=== PATIENT | female | born 1950 | race American Indian/Alaskan Native ===

== ENCOUNTER 2017-01-12 13:41 | Outpatient (CLI) | payer MEDICARE | END 2017-01-12 13:42 | disposition home or self-care (01) | LOC: MAMMO 13:41 | PROVIDERS: ATTEND Obstetrics & Gynecology | DX: N63 Unspecified lump in breast (principal); I10 Essential (primary) hypertension | CPT/HCPCS: 76642; G0206 ==

== ENCOUNTER 2017-01-19 04:09 | Emergency (ER) | payer MEDICARE ==
[2017-01-19 04:30] VITALS: BP 136/71
[2017-01-19] MEDS ORDERED: MORPHINE IM ONE (05:12)
--- NOTE | 2017-01-19 05:30 | Emergency Department Report ---
HPI - General Chief Complaint: Extremity Injury, Lower Time Seen by Provider: 01/19/17 05:22 - HPI HPI: Patient is a 66-year-old female with a history of fibromyalgia who presents to ED complaining of fibromyalgia worsening pain of the right hip area. Patient states she is taking her prescribed Flexeril and hydrocodone with no relief. Patient states pain is on her right lumbar region and radiates down her right leg. She states she sees Dr. Ramachandran as a primary care.She denies any trauma or fall and states she just has worsening pain or from fibromyalgia She denies fever assess chills/nausea/vomiting/abdominal pain/calf pain/ shortness of breath/constipation/any other problems ED Past Medical Hx - Past Medical History Previous Medical History?: Yes Hx Hypertension: Yes Hx Arthritis: Yes Additional medical history: high cholesterol, fibromyalgia - Surgical History Past Surgical History?: Yes Hx Open Heart Surgery: Yes (valve replacement, CABG) Hx Cholecystectomy: Yes Hx Appendectomy: Yes Additional Surgical History: tubal ligation - Social History Smoking Status: Never Smoker Substance Use Type: Alcohol, Prescribed - Medications Home Medications: Home Medications Medication Instructions Recorded Confirmed Last Taken Type Aspirin [Baby Aspirin] 81 mg PO QDAY 12/04/13 11/09/14 11/09/14 History Colesevelam [Welchol] 625 mg PO BID 12/04/13 11/09/14 11/09/14 History Cyclobenzaprine [Flexeril] 10 mg PO TID PRN 12/04/13 11/09/14 12/04/13 11:00 History HYDROcodone/APAP 7.5-325 [[place] 1 each PO Q6HR PRN 12/04/13 11/09/14 12/04/13 11 :00 History 7.5/325 mg] Losartan [Cozaar] 25 mg PO QDAY 12/04/13 11/09/14 11/09/14 History Metoprolol [Lopressor] 50 mg PO BID 12/04/13 11/09/14 11/09/14 History [place]-3 Acid Ethyl Esters [Lovaza] 2 gm PO BID 12/04/13 11/09/14 11/09/14 History ALBUTEROL Inhaler [ProAir HFA 2 puff IH QID PRN #2 inhalation 12/05/13 11/09/14 Unknown Rx Inhaler] Azithromycin [Zithromax Z-PRATIK] 250 mg PO DAILY #6 tab 07/28/15 Unknown Rx HYDROcodone/APAP 10-325 [[place] 1 each PO Q6HR PRN #16 tablet 07/28/15 Unknown Rx 10/325] Promethazine Dm [Phenergan Dm 5 ml PO Q6H PRN #120 ml 07/28/15 Unknown Rx 6.25/15 mg 5 ml] oxyCODONE /ACETAMINOPHEN [Percocet 1 tab PO Q6HR PRN #10 tablet 01/19/17 Unknown Rx 5/325] ED Review of Systems ROS: Stated complaint: RT HIP PAIN Other details as noted in HPI Constitutional: denies: chills, fever Eyes: denies: eye pain, eye discharge, vision change ENT: denies: ear pain, throat pain Respiratory: denies: cough, shortness of breath, wheezing Cardiovascular: denies: chest pain, palpitations Endocrine: no symptoms reported Gastrointestinal: denies: abdominal pain, nausea, vomiting, diarrhea, hematemesis Genitourinary: denies: urgency, dysuria, frequency, hematuria, discharge Musculoskeletal: denies: back pain, joint swelling, arthralgia Skin: denies: rash, lesions Neurological: denies: headache, weakness, paresthesias Psychiatric: denies: anxiety, depression Hematological/Lymphatic: denies: easy bleeding, easy bruising Physical Exam - Physical Exam Vital Signs: Vital Signs 01/19/17 04:26 Temperature 98.6 F Pulse Rate 64 Respiratory 18 Rate Blood Pressure 136/71 Blood Pressure 136/71 [Left] O2 Sat by Pulse 100 Oximetry Physical Exam: GENERAL: Alert and oriented x3, no apparent distress, Normal Gait, atraumatic. HEAD: Head is normocephalic and a-traumatic. EYES: Extra ocular muscles are intact. Pupils are equal, round, and reactive to light and accommodation. LUNGS: Symetrical with respiration, No wheezing, no rales or crackles, CTAB. HEART: S1, S2 present, regular rate and rhythm without murmur, no rubs, no gallops. Non tender to palpation EXTREMITIES/MUSCULOSKELETAL: No cyanosis, clubbing, rash, lesions or edema. Full ROM bilaterally. UE/LE Pulses 2+ bilaterally. LE and UE 5+ strength bilaterally, straight leg raise positive right-sided. Right lumbar region tender to palpation. Nontender to palpation, nonedematous, Homans sign negative on the right NEUROLOGIC: The patient is cooperative with no focal neurologic deficits. Cranial nerves II through XII are grossly intact. Normal speech. Normal sensation in bilateral lower extremities, No loss of sensation, SKIN: Warm and dry, No lesions, No ulceration or induration present. ED Course Vital Signs 01/19/17 04:26 Temperature 98.6 F Pulse Rate 64 Respiratory 18 Rate Blood Pressure 136/71 Blood Pressure 136/71 [Left] O2 Sat by Pulse 100 Oximetry ED Medical Decision Making - Medical Decision Making 66-year-old female presents with fibromyalgia exacerbation. ED course: Patient received 6 mg of morphine in the ED. Discussed patient to follow up with her physician Dr. Ramachandran Patient is in no acute distress. Critical care attestation.: If time is entered above; I have spent that time in minutes in the direct care of this critically ill patient, excluding procedure time. ED Disposition Clinical Impression: Fibromyalgia, Lumbar radicular pain Disposition: TO HOME OR SELFCARE Is pt being admited?: No Does the pt Need Aspirin: No Condition: Stable Instructions: Trigger Point Pain (ED), Fibromyalgia (ED) Prescriptions: oxyCODONE /ACETAMINOPHEN [Percocet 5/325] 1 tab PO Q6HR PRN #10 tablet PRN Reason: Pain Referrals: PRIMARY CARE, [Primary Care Provider] - 3-5 Days [facility] [Outside] - 3-5 Days [facility] [Outside] - 3-5 Days Forms: Accompanied Note Time of Disposition: 05:31
== END 2017-01-19 05:48 | disposition home or self-care (01) ==
LOC: ED 04:09
DX: M79.7 Fibromyalgia (principal); I10 Essential (primary) hypertension; M19.90 Unspecified osteoarthritis, unspecified site; E78.00 Pure hypercholesterolemia, unspecified; Z95.1 Presence of aortocoronary bypass graft; Z90.49 Acquired absence of other specified parts of digestive tract; Z98.51 Tubal ligation status; Z79.82 Long term (current) use of aspirin
CPT/HCPCS: 96372; 99282; J2270

== ENCOUNTER 2017-05-22 00:22 | Emergency (ER) | payer MEDICARE ==
[2017-05-22 00:55] VITALS: BP 128/80
[2017-05-22 02:06] LABS: Basophils % (Auto) 1.1 % (0.0-1.8); Eosinophils % (Auto) 0.6 % (0.0-4.3); Hematocrit 41.9 % (30.3-42.9); Hemoglobin 13.8 gm/dl (10.1-14.3); Mean Corpuscular HGB Conc 33 % (30-34); Mean Corpuscular Hemoglobin 28 pg (28-32); Mean Corpuscular Volume 85 fl (79-97); Platelet Count 200 K/mm3 (140-440); Red Blood Count 4.93 M/mm3 (3.65-5.03); Red Cell Distribution Width 16.4 % (13.2-15.2); White Blood Count 7.7 K/mm3 (4.5-11.0)
[2017-05-22 02:12] LABS: Anion Gap 22 mmol/L; BUN/Creatinine Ratio 18; Blood Urea Nitrogen 16 mg/dL (7-17); Calcium 10.1 mg/dL (8.4-10.2); Carbon Dioxide 22 mmol/L (22-30); Chloride 104.9 mmol/L (98-107); Glucose 99 mg/dL (65-100); Potassium 3.9 mmol/L (3.6-5.0); Sodium 145 mmol/L (137-145)
== END 2017-05-22 05:22 | disposition left against medical advice (07) ==
LOC: ED 00:22
DX: R07.9 Chest pain, unspecified (principal); Z53.21 Procedure and treatment not carried out due to patient leaving prior to being seen by health care provider
CPT/HCPCS: 36415; 80048; 84484; 85025; 93005; 93010

== ENCOUNTER 2018-01-18 18:16 | Emergency (ER) | payer MEDICARE ==
[2018-01-18 18:42] VITALS: BP 148/61
[2018-01-18] MEDS ORDERED: MORPHINE IM ONE (20:10)
--- NOTE | 2018-01-18 20:14 | Emergency Department Report ---
ED General Adult HPI - General Chief complaint: Pain General Stated complaint: TINGLING IN FEET AND HANDS. SEVERE PAIN ON RT SIDE Time Seen by Provider: 01/18/18 20:06 Source: patient Mode of arrival: Ambulatory Limitations: Physical Limitation - History of Present Illness Initial comments: Mrs. Garcia is 67 yo female with hx of fibromyalgia since 2000. She has had tingling in her hand and feet for 2 weeks. Pain typical of fibromyalgia. She normally takes Flexeril and [place]. However these medications have not helped this exacerbation fibromyalgia. . She unclear her triggers. Denies any fever or trauma. PCP Dr. Fink - Related Data Home Medications Medication Instructions Recorded Confirmed Last Taken Aspirin [Baby Aspirin] 81 mg PO QDAY 12/04/13 11/09/14 11/09/14 Colesevelam [Welchol] 625 mg PO BID 12/04/13 11/09/14 11/09/14 Cyclobenzaprine [Flexeril] 10 mg PO TID PRN 12/04/13 11/09/14 12/04/13 11:00 HYDROcodone/APAP 7.5-325 [[place] 1 each PO Q6HR PRN 12/04/13 11/09/14 12/04/13 11 :00 7.5/325 mg] Losartan [Cozaar] 25 mg PO QDAY 12/04/13 11/09/14 11/09/14 Metoprolol [Lopressor] 50 mg PO BID 12/04/13 11/09/14 11/09/14 [place]-3 Acid Ethyl Esters [Lovaza] 2 gm PO BID 12/04/13 11/09/14 11/09/14 Previous Rx's Medication Instructions Recorded Last Taken Type ALBUTEROL Inhaler [ProAir HFA 2 puff IH QID PRN #2 inhalation 12/05/13 Unknown Rx Inhaler] Azithromycin [Zithromax Z-PRATIK] 250 mg PO DAILY #6 tab 07/28/15 Unknown Rx HYDROcodone/APAP 10-325 [[place] 1 each PO Q6HR PRN #16 tablet 07/28/15 Unknown Rx 10/325] Promethazine Dm [Phenergan Dm 5 ml PO Q6H PRN #120 ml 07/28/15 Unknown Rx 6.25/15 mg 5 ml] oxyCODONE /ACETAMINOPHEN [Percocet 1 tab PO Q6HR PRN #10 tablet 01/19/17 Unknown Rx 5/325] oxyCODONE /ACETAMINOPHEN [Percocet 1 tab PO Q6HR PRN #5 tablet 01/18/18 Unknown Rx 5/325] Allergies Allergy/AdvReac Type Severity Reaction Status Date / Time No Known Allergies Allergy Unverified 12/04/13 20:40 ED Review of Systems ROS: Stated complaint: TINGLING IN FEET AND HANDS. SEVERE PAIN ON RT SIDE Other details as noted in HPI Comment: All other systems reviewed and negative Constitutional: denies: fever, malaise Respiratory: denies: cough Cardiovascular: denies: chest pain ED Past Medical Hx - Past Medical History Previous Medical History?: Yes Hx Hypertension: Yes Hx Arthritis: Yes Additional medical history: high cholesterol, fibromyalgia - Surgical History Past Surgical History?: Yes Hx Open Heart Surgery: Yes (valve replacement, CABG) Hx Cholecystectomy: Yes Hx Appendectomy: Yes Additional Surgical History: tubal ligation - Social History Smoking Status: Former Smoker Substance Use Type: Alcohol - Medications Home Medications: Home Medications Medication Instructions Recorded Confirmed Last Taken Type Aspirin [Baby Aspirin] 81 mg PO QDAY 12/04/13 11/09/14 11/09/14 History Colesevelam [Welchol] 625 mg PO BID 12/04/13 11/09/14 11/09/14 History Cyclobenzaprine [Flexeril] 10 mg PO TID PRN 12/04/13 11/09/14 12/04/13 11:00 History HYDROcodone/APAP 7.5-325 [[place] 1 each PO Q6HR PRN 12/04/13 11/09/14 12/04/13 11 :00 History 7.5/325 mg] Losartan [Cozaar] 25 mg PO QDAY 12/04/13 11/09/14 11/09/14 History Metoprolol [Lopressor] 50 mg PO BID 12/04/13 11/09/14 11/09/14 History [place]-3 Acid Ethyl Esters [Lovaza] 2 gm PO BID 12/04/13 11/09/14 11/09/14 History ALBUTEROL Inhaler [ProAir HFA 2 puff IH QID PRN #2 inhalation 12/05/13 11/09/14 Unknown Rx Inhaler] Azithromycin [Zithromax Z-PRATIK] 250 mg PO DAILY #6 tab 01/04/16 Unknown Rx HYDROcodone/APAP 10-325 [[place] 1 each PO Q6HR PRN #16 tablet 07/28/15 Unknown Rx 10/325] Promethazine Dm [Phenergan Dm 5 ml PO Q6H PRN #120 ml 07/28/15 Unknown Rx 6.25/15 mg 5 ml] oxyCODONE /ACETAMINOPHEN [Percocet 1 tab PO Q6HR PRN #10 tablet 01/19/17 Unknown Rx 5/325] oxyCODONE /ACETAMINOPHEN [Percocet 1 tab PO Q6HR PRN #5 tablet 01/18/18 Unknown Rx 5/325] ED Physical Exam - General Limitations: Physical Limitation General appearance: alert, in no apparent distress - Head Head exam: Present: atraumatic, normocephalic - Eye Eye exam: Present: normal appearance - ENT ENT exam: Present: mucous membranes moist - Neck Neck exam: Present: normal inspection - Respiratory Respiratory exam: Present: normal lung sounds bilaterally. Absent: respiratory distress, wheezes, rales, rhonchi - Cardiovascular Cardiovascular Exam: Present: regular rate, normal rhythm, normal heart sounds. Absent: systolic murmur, diastolic murmur, rubs, gallop - GI/Abdominal GI/Abdominal exam: Present: soft, normal bowel sounds. Absent: distended, tenderness, guarding, rebound - Extremities Exam Extremities exam: Present: normal inspection - Back Exam Back exam: Present: normal inspection - Neurological Exam Neurological exam: Present: alert, oriented X3 - Psychiatric Psychiatric exam: Present: normal affect, normal mood - Skin Skin exam: Present: warm, dry, intact, normal color. Absent: rash ED Course Vital Signs 01/18/18 18:38 Temperature 98.1 F Pulse Rate 63 Respiratory 20 Rate Blood Pressure 148/61 O2 Sat by Pulse 97 Oximetry ED Medical Decision Making - Medical Decision Making Ms. Garcia presents for exacerbation or worsening of fibromyalgia symptoms. She received IM morphine in ED prescription for 5 tablets of Percocet. Critical care attestation.: If time is entered above; I have spent that time in minutes in the direct care of this critically ill patient, excluding procedure time. ED Disposition Clinical Impression: Fibromyalgia Disposition: PAT REG,NO TRIAGE Is pt being admited?: No Does the pt Need Aspirin: No Condition: Stable Instructions: Fibromyalgia (ED) Prescriptions: oxyCODONE /ACETAMINOPHEN [Percocet 5/325] 1 tab PO Q6HR PRN #5 tablet PRN Reason: Pain Referrals: PRIMARY CARE, [Primary Care Provider] - 3-5 Days Time of Disposition: 20:14
== END 2018-01-18 20:35 | disposition left against medical advice (07) ==
LOC: ED 18:16
DX: M79.7 Fibromyalgia (principal); I10 Essential (primary) hypertension; M19.90 Unspecified osteoarthritis, unspecified site; E78.00 Pure hypercholesterolemia, unspecified; Z90.49 Acquired absence of other specified parts of digestive tract; Z98.51 Tubal ligation status; Z87.891 Personal history of nicotine dependence; Z79.82 Long term (current) use of aspirin
CPT/HCPCS: 96372; 99282; J2270

== ENCOUNTER 2018-08-15 16:35 | Emergency (ER) | payer MEDICARE ==
--- NOTE | 2018-08-15 17:20 | Emergency Department Report ---
ED Dysuria HPI - HPI Chief Complaint: Abdominal Pain Stated Complaint: STOMACH PAIN/DISCHARGE Time Seen by Provider: 08/15/18 17:17 Duration: 3 Days Location of Discomfort: Suprapubic Severity: Mild Symptoms: Dysuria: Yes, Frequency: No, Suprapubic Pain: Yes, Flank Pain: No, Fever: No, Hematuria: No, Abdominal Pain: No, Previous UTI's: Yes Other History: 68 YO AA FEMALE WITH SUPRAPUBIC PAIN AND DYSURIA ED Review of Systems ROS: Stated complaint: STOMACH PAIN/DISCHARGE Other details as noted in HPI Comment: All other systems reviewed and negative Constitutional: denies: chills Eyes: denies: eye pain ENT: denies: ear pain Respiratory: denies: orthopnea Cardiovascular: denies: palpitations Endocrine: denies: excessive sweating Gastrointestinal: as per HPI, abdominal pain. denies: nausea, vomiting, diarrhea, constipation, hematemesis, melena Genitourinary: as per HPI, dysuria. denies: urgency, frequency, hematuria, discharge Musculoskeletal: as per HPI, back pain Skin: denies: lesions Neurological: denies: as per HPI Psychiatric: denies: anxiety Hematological/Lymphatic: denies: easy bleeding ED Past Medical Hx - Past Medical History Previous Medical History?: Yes Hx Hypertension: Yes Hx Arthritis: Yes Additional medical history: high cholesterol, fibromyalgia - Surgical History Past Surgical History?: Yes Hx Open Heart Surgery: Yes (valve replacement, CABG) Hx Cholecystectomy: Yes Hx Appendectomy: Yes Additional Surgical History: tubal ligation - Social History Smoking Status: Former Smoker Substance Use Type: Alcohol - Medications Home Medications: Home Medications Medication Instructions Recorded Confirmed Last Taken Type Aspirin [Baby Aspirin] 81 mg PO QDAY 12/04/13 11/09/14 11/09/14 History Colesevelam [Welchol] 625 mg PO BID 12/04/13 11/09/14 11/09/14 History Losartan [Cozaar] 25 mg PO QDAY 12/04/13 11/09/14 11/09/14 History Metoprolol [Lopressor] 50 mg PO BID 12/04/13 11/09/14 11/09/14 History [place]-3 Acid Ethyl Esters [Lovaza] 2 gm PO BID 12/04/13 11/09/14 11/09/14 History ALBUTEROL Inhaler (OR & NICU) 2 puff IH QID PRN #2 inhalation 12/05/13 11/09/14 Unknown Rx [ProAir HFA Inhaler] Sulfamethoxazole/Trimethoprim 1 each PO BID #6 tablet 08/15/18 Unknown Rx [Bactrim DS TAB] Dysuria Exam - Exam General: Vital signs noted. No distress. Alert and acting appropriately. Exam: Yes Moist Mucous Membranes, No CVA Tenderness, No Abdominal Tenderness, No Rigidity or Guarding ED Course Vital Signs 08/15/18 16:38 Temperature 97.3 F L Pulse Rate 62 Respiratory 18 Rate Blood Pressure 146/63 O2 Sat by Pulse 100 Oximetry ED Medical Decision Making - Lab Data Result diagrams: 08/15/18 17:23 08/15/18 17:23 - Medical Decision Making UA NOTED NO CVA TENDERNESS NO FEVER VSS NONTOXIC MEDICATED DISCUSSED FOLLOW UP WITH PCP WITH PT Labs 08/15/18 08/15/18 08/15/18 17:16 17:23 17:23 WBC 8.8 RBC 4.37 Hgb 11.3 Hct 36.1 MCV 83 MCH 26 L MCHC 31 RDW 15.3 H Plt Count 222 Sodium 140 Potassium 3.9 Chloride 103.4 Carbon Dioxide 24 Anion Gap 17 BUN 17 Creatinine 1.0 Estimated GFR > 60 BUN/Creatinine Ratio 17 Glucose 113 H Calcium 9.0 Total Bilirubin 0.20 AST 17 ALT 9 Alkaline Phosphatase 70 Total Protein 7.4 Albumin 3.9 Albumin/Globulin Ratio 1.1 Urine Color Yellow Urine Turbidity Slightly-cloudy Urine pH 5.0 Ur Specific [place] 1.020 Urine Protein <15 mg/dl Urine Glucose (UA) Neg Urine Ketones Neg Urine Blood Neg Urine Nitrite Neg Urine Bilirubin Neg Urine Urobilinogen < 2.0 Ur Leukocyte Esterase Lg Urine WBC (Auto) 88.0 H Urine RBC (Auto) 30.0 U Epithel Cells (Auto) 2.0 Urine Bacteria (Auto) 1+ Urine Mucus Few - Differential Diagnosis UTI V PYLO Critical care attestation.: If time is entered above; I have spent that time in minutes in the direct care of this critically ill patient, excluding procedure time. ED Disposition Clinical Impression: UTI (urinary tract infection) Disposition: TO HOME OR SELFCARE Is pt being admited?: No Does the pt Need Aspirin: No Condition: Stable Instructions: Urinary Tract Infection in Women (ED) Additional Instructions: DRINK 2 G OF WATER PER DAY MEDS ORDERED TODAY TAKE UNTIL GONE YOU NEED TO FOLLOW UP WITH PCP TO BE SURE THIS INFECTION GOES AWAY MOTRIN OR TYLENOL FOR MILD PAIN OVER THE COUNTER PYRIDIUM CAN BE USED FOR PAIN WELL CRANBERRY JUICE MAY HELP LIMIT SUGAR INTAKE Prescriptions: Sulfamethoxazole/Trimethoprim [Bactrim DS TAB] 1 each PO BID #6 tablet Referrals: MARCOS URIBE MD [Primary Care Provider] - 3-5 Days Time of Disposition: 17:39
[2018-08-15 17:34] LABS: Hematocrit 36.1 % (30.3-42.9); Hemoglobin 11.3 gm/dl (10.1-14.3); Mean Corpuscular HGB Conc 31 % (30-34); Mean Corpuscular Volume 83 fl (79-97); Platelet Count 222 K/mm3 (140-440); Red Blood Count 4.37 M/mm3 (3.65-5.03); Red Cell Distribution Width 15.3 % (13.2-15.2)
[2018-08-15 17:35] LABS: Bacteria,Urine 1+ /HPF (Negative); Bilirubin,Urine NEG (Negative); Blood,Urine NEG (Negative); Color,Urine Yellow (Yellow); Mucus,Urine FEW /HPF; Protein,Urine <15 mg/dL mg/dL (Negative); Urobilinogen,Urine < 2.0 mg/dL (<2.0)
[2018-08-15] MEDS ORDERED: ULTRAM PO ONE (17:38)
[2018-08-15] MEDS ORDERED: BACTRIM DS PO ONE (17:38)
[2018-08-15] MEDS ORDERED: PYRIDIUM PO ONE (17:39)
[2018-08-15 17:51] LABS: Alanine Aminotransferase 9 units/L (7-56); Albumin 3.9 g/dL (3.9-5); BUN/Creatinine Ratio 17; Blood Urea Nitrogen 17 mg/dL (7-17); Hemolysis Index 5
[2018-08-15 18:03] VITALS: BP 151/66
== END 2018-08-15 18:01 | disposition home or self-care (01) ==
LOC: ED 16:35
DX: N39.0 Urinary tract infection, site not specified (principal); I10 Essential (primary) hypertension; M19.90 Unspecified osteoarthritis, unspecified site; E78.00 Pure hypercholesterolemia, unspecified
CPT/HCPCS: 36415; 80053; 81001; 85027

== ENCOUNTER 2018-12-27 06:02 | Day surgery (SDC) | payer MEDICARE ==
[2018-12-27] MEDS ORDERED: NACL 0.9% 500 ML 500 ML IV SCH (07:00)
[2018-12-27 07:24] LABS: Hematocrit 36.8 % (30.3-42.9); Hemoglobin 11.8 gm/dl (10.1-14.3); Mean Corpuscular HGB Conc 32 % (30-34); Mean Corpuscular Volume 84 fl (79-97); Platelet Count 255 K/mm3 (140-440); Red Cell Distribution Width 15.7 % (13.2-15.2)
[2018-12-27 07:26] LABS: INR 0.92 (0.87-1.13)
[2018-12-27 07:55] LABS: BUN/Creatinine Ratio 15; Blood Urea Nitrogen 15 mg/dL (7-17); Calcium 9.2 mg/dL (8.4-10.2); Hemolysis Index 5
[2018-12-27] MEDS ORDERED: HEPARIN/NS 5000 UNIT/500ML(CATH LAB) 1,000 ML IR ONE (08:14)
[2018-12-27] MEDS ORDERED: XYLOCAINE 2% INFILTRATI ONE (08:15)
[2018-12-27] MEDS ORDERED: SUBLIMAZE ONE (08:15)
[2018-12-27] MEDS ORDERED: VERSED ONE (08:15)
[2018-12-27 08:32] LABS: Total Cells Counted 100
[2018-12-27 08:33] LABS: Basophils % (Manual) 0 % (0.0-1.8)
[2018-12-27 08:34] LABS: Platelet Estimate Consistent w Auto; RBC Morphology Normal
--- NOTE | 2018-12-27 09:31 | Short Stay Summary ---
Short Stay Documentation Date of service: 12/27/18 - History H&P: obtained from office - Allergies and Medications Current Medications: Allergies atorvastatin [From Lipitor] Allergy (Verified 12/27/18 07:10) Rash Home Medications Medication Instructions Recorded Confirmed Last Taken Type Aspirin [Baby Aspirin] 81 mg PO QDAY 12/04/13 12/27/18 12/27/18 07:24 History 81mg Losartan [Cozaar] 25 mg PO QDAY 12/04/13 12/27/18 12/27/18 07:24 History 25mg Metoprolol [Lopressor] 50 mg PO BID 12/04/13 12/27/18 12/27/18 07:25 History 50mg [place]-3 Acid Ethyl Esters [Lovaza] 2 gm PO BID 12/04/13 12/27/18 12/26/18 History 1 cap Amlodipine Besylate [Norvasc] 5 mg PO DAILY 12/27/18 12/27/18 12/26/18 History 5mg Flexeril 10 MG TAB 10 mg PO PRN PRN 12/27/18 12/27/18 12/16/18 History 10mg Nitroglycerin [Nitrostat] 0.4 mg SL PRN PRN 12/27/18 12/27/18 12/26/18 History 0.4mg Active Medications Sodium Chloride (Nacl 0.9% 500 Ml) 500 mls @ 50 mls/hr IV DIRECT SHOSHANA Stop: 12/27/18 16:59 Last Admin: 12/27/18 07:14 Dose: 50 mls/hr Documented by: - Physical exam General appearance: no acute distress Integumentary: no rash HEENT: Atraumatic Lungs: Clear to auscultation Breasts: deferred Heart: Regular rate, Murmur Gastrointestinal: normal Female Genitourinary: deferred Rectal Exam: deferred Extremities: no ischemia Neurological: Normal gait - Brief post op/procedure progress note Date of procedure: 12/27/18 Pre-op diagnosis: Chest tightness Post-op diagnosis: same Procedure: LHC, LG gram, SVG to Diag Anesthesia: MAC Findings: See report Surgeon: KIMBERLY WSETBROOK Estimated blood loss: none Pathology: none Condition: stable - Hospital course Hospital course: Uneventful - Disposition Condition at discharge: Good Disposition: DC-01 TO HOME OR SELFCARE Short Stay Discharge Plan Activity: no driving until cleared by PCP (for 2 days), other (Avoid strenuous activity) Weight Bearing Status: Non-Weight Bearing (for 2 days) Diet: low fat, low cholesterol, low salt Follow up with: MARCOS URIBE MD [Primary Care Provider] - 7 Days
[2018-12-27] MEDS ORDERED: TYLENOL PO ONE (10:27)
[2018-12-27] MEDS ORDERED: TYLENOL ONE (10:33)
[2018-12-27 11:15] VITALS: BP 159/76
--- NOTE | 2018-12-27 14:57 | Cardiac Catherization Report ---
LEFT HEART CATH ORDERING PHYSICIAN: Shonda Brunson MD INDICATIONS: Chest tightness and abnormal myocardial perfusion scan. PROCEDURES PERFORMED: 1. Selective left and right coronary angiography. 2. Left ventriculography. DESCRIPTION OF PROCEDURE: After obtaining written consent, the patient was draped using sterile technique. A 2% lidocaine was injected into the right groin. A 5-[place] vascular sheath was inserted into the right femoral artery using a micropuncture technique. A 5-[place] JL4 catheter was used to selectively engage the left coronary artery. A 5-[place] 3DRC catheter was used to selectively engage the right coronary artery and after that, the femoral sheath was exchanged to 6-[place] and a [place] double lumen pigtail catheter was used to measure the gradient across the LVOT. No complications occurred during the procedure. Hemostasis was achieved at the end of the procedure using a 6-[place] Angio-Seal device. The total sedation administered 1 mg of IV Versed and 50 mcg of IV fentanyl. Patient/physician [id number] sedation start time is 8:40 a.m. Patient/physician [id number] sedation stop time is 9:16 a.m. Total sedation time is 36 minutes. FINDINGS: HEMODYNAMICS: 1. The aortic pressure was 185/79. The left ventricular systolic pressure was 224 mmHg and the left ventricular end-diastolic pressure was 43 mmHg. 2. The mean gradient across the LVOT was measured at 58 mmHg and the [id number]-[id number] gradient is 56 mmHg. The peak instantaneous gradient is 92 mmHg. These findings are consistent with severe aortic stenosis. CARDIAC STRUCTURES: The left ventricle is normal in size and systolic function. The left ventricular ejection fraction is estimated at 60%. There is evidence of a bioprosthetic aortic valve. There is also evidence of mitral regurgitation noted on LV gram. However, the study is not adequate for quantification of the severity of the mitral regurgitation. CORONARY ANATOMY: 1. This is a right dominant circulation. 2. The left main is angiographically normal. 3. The LAD is angiographically normal. The first diagonal artery appears to be bypassed. There is evidence of a retrograde flow into the bypass of the first diagonal artery. 4. The left circumflex artery is angiographically normal. 5. The right coronary artery has a very anterior takeoff. The right coronary artery has mild luminal irregularities in the proximal segment, otherwise no evidence of obstructive disease. 6. There is a patent saphenous vein graft to the first diagonal artery with retrograde flow into the LAD system. IMPRESSION: 1. Mild nonobstructive coronary artery disease noted in this right dominant circulation. 2. Patent saphenous vein graft to the first diagonal artery. 3. Normal left ventricular size and systolic function. 4. There is evidence of significant mitral regurgitation; however, this study was not adequate for accurate quantification. 5. There is evidence of severe aortic stenosis, indicating ____ of the bioprosthetic aortic valve. The mean gradient across the valve was measured at 58 mmHg. It took a while to cross the valve using a straight tipped wire. Therefore, also indicating that the bioprosthetic aortic valve is dysfunctional. RECOMMENDATIONS: The patient will be recommended for further echocardiographic evaluation of both the aortic as well as the mitral valve. The patient should be reconsidered for another valve correction surgery. Results were discussed with ordering physician. [facility]# [id number] ALONDRA/ZA
== END 2018-12-27 11:20 | disposition home or self-care (01) ==
LOC: CATHLABREC 06:02
PROVIDERS: ATTEND Internal Medicine
DX: I25.118 Atherosclerotic heart disease of native coronary artery with other forms of angina pectoris (principal); I08.0 Rheumatic disorders of both mitral and aortic valves; E78.00 Pure hypercholesterolemia, unspecified; I10 Essential (primary) hypertension; K21.9 Gastro-esophageal reflux disease without esophagitis; M79.7 Fibromyalgia; M19.90 Unspecified osteoarthritis, unspecified site; F41.9 Anxiety disorder, unspecified; Z98.890 Other specified postprocedural states; Z87.891 Personal history of nicotine dependence; Z79.899 Other long term (current) drug therapy; Z79.82 Long term (current) use of aspirin; Z95.1 Presence of aortocoronary bypass graft; Z90.49 Acquired absence of other specified parts of digestive tract; Z98.51 Tubal ligation status; Z87.440 Personal history of urinary (tract) infections
CPT/HCPCS: 36415; 80048; 85007; 85025; 85610; 85730; 93005; 93010; 93459; 99156; 99157; C1751; C1894; J1644; J2250; J3010; J7040; Q9967

== ENCOUNTER 2019-02-11 14:06 | Emergency (ER) | payer MEDICARE, OTHER ==
[2019-02-11 14:27] VITALS: BP 145/83
--- NOTE | 2019-02-11 14:28 | Event Note ---
ED Screening Note Date of service: 02/11/19 Time: 14:26 ED Screening Note: 68 y/o female comes in for left side pain. She reports that she feels that this is her fibromyalgia This initial assessment/diagnostic orders/clinical plan/treatment(s) is/are subject to change based on patients health status, clinical progression and re- assessment by fellow clinical providers in the ED. Further treatment and workup at subsequent clinical providers discretion. Patient/guardian urged not to elope from the ED as their condition may be serious if not clinically assessed and managed. Initial orders include:
[2019-02-11] MEDS ORDERED: ZOFRAN IM ONE (14:48)
[2019-02-11] MEDS ORDERED: MORPHINE IM ONE (14:48)
--- NOTE | 2019-02-11 14:52 | Emergency Department Report ---
ED Back Pain/Injury HPI - General Chief Complaint: Back Pain/Injury Stated Complaint: SWEATING/NAUSEA Time Seen by Provider: 02/11/19 14:39 Source: patient Limitations: No Limitations - History of Present Illness Initial Comments: Patient is 68 year old female with history of sciatica. Patient presented to the ER complaining of lower back pain that radiated down to her left leg. Patient stated that pain is similar to her previous flareup. Patient denies any weakness, numbness or tingling sensation. No bowel or bladder incontinence. Patient denied any recent trauma. No fever or chills. MD Complaint: back pain -: Last night Similar Symptoms Previously: Yes - Related Data Home Medications Medication Instructions Recorded Confirmed Last Taken Aspirin [Aspirin BABY CHEW TAB] 81 mg PO QDAY 12/04/13 12/27/18 12/27/18 07:24 81mg Losartan [Cozaar] 25 mg PO QDAY 12/04/13 12/27/18 12/27/18 07:24 25mg Metoprolol [Lopressor TAB] 50 mg PO BID 12/04/13 12/27/18 12/27/18 07:25 50mg [place]-3 Acid Ethyl Esters [Lovaza] 2 gm PO BID 12/04/13 12/27/18 12/26/18 1 cap Amlodipine Besylate [Norvasc] 5 mg PO DAILY 12/27/18 12/27/18 12/26/18 5mg Flexeril 10 MG TAB 10 mg PO PRN PRN 12/27/18 12/27/18 12/16/18 10mg Allergies Allergy/AdvReac Type Severity Reaction Status Date / Time atorvastatin [From Lipitor] Allergy Rash Verified 12/27/18 07:10 ED Review of Systems ROS: Stated complaint: SWEATING/NAUSEA Other details as noted in HPI Comment: All other systems reviewed and negative Constitutional: denies: chills Respiratory: denies: cough, shortness of breath Cardiovascular: denies: chest pain, palpitations Gastrointestinal: denies: abdominal pain, nausea, vomiting Musculoskeletal: back pain Neurological: denies: headache, weakness ED Past Medical Hx - Past Medical History Previous Medical History?: Yes Hx Hypertension: Yes Hx GERD: Yes (Hx) Hx Arthritis: Yes Additional medical history: high cholesterol, fibromyalgia - Surgical History Past Surgical History?: Yes Hx Open Heart Surgery: Yes (valve replacement, CABG) Hx Cholecystectomy: Yes Hx Appendectomy: Yes Additional Surgical History: tubal ligation - Social History Smoking Status: Never Smoker Substance Use Type: Alcohol - Medications Home Medications: Home Medications Medication Instructions Recorded Confirmed Last Taken Type Aspirin [Aspirin BABY CHEW TAB] 81 mg PO QDAY 12/04/13 12/27/18 12/27/18 07:24 History 81mg Losartan [Cozaar] 25 mg PO QDAY 12/04/13 12/27/18 12/27/18 07:24 History 25mg Metoprolol [Lopressor TAB] 50 mg PO BID 12/04/13 12/27/18 12/27/18 07:25 History 50mg [place]-3 Acid Ethyl Esters [Lovaza] 2 gm PO BID 12/04/13 12/27/18 12/26/18 History 1 cap Amlodipine Besylate [Norvasc] 5 mg PO DAILY 12/27/18 12/27/18 12/26/18 History 5mg Flexeril 10 MG TAB 10 mg PO PRN PRN 12/27/18 12/27/18 12/16/18 History 10mg ED Physical Exam - General Limitations: No Limitations General appearance: alert, in no apparent distress - Head Head exam: Present: atraumatic, normocephalic, normal inspection - Eye Eye exam: Present: normal appearance - ENT ENT exam: Present: normal exam, normal orophraynx, mucous membranes moist - Neck Neck exam: Present: normal inspection, full ROM. Absent: tenderness, meningismus, lymphadenopathy, thyromegaly - Respiratory Respiratory exam: Present: normal lung sounds bilaterally - Cardiovascular Cardiovascular Exam: Present: regular rate, normal rhythm, normal heart sounds - GI/Abdominal GI/Abdominal exam: Present: soft, normal bowel sounds. Absent: distended, tenderness, guarding, rebound, rigid, organomegaly, mass, bruit, pulsatile mass, hernia - Extremities Exam Extremities exam: Present: normal inspection, full ROM, normal capillary refill - Back Exam Back exam: Present: normal inspection. Absent: tenderness, CVA tenderness (R), CVA tenderness (L), muscle spasm, paraspinal tenderness, vertebral tenderness - Neurological Exam Neurological exam: Present: alert, oriented X3, CN II-XII intact, normal gait, reflexes normal - Psychiatric Psychiatric exam: Present: normal mood - Skin Skin exam: Present: warm, intact, normal color ED Course Vital Signs 02/11/19 14:26 Temperature 97.8 F Pulse Rate 84 Respiratory 16 Rate Blood Pressure 145/83 O2 Sat by Pulse 98 Oximetry Critical care attestation.: If time is entered above; I have spent that time in minutes in the direct care of this critically ill patient, excluding procedure time. ED Disposition Clinical Impression: Back pain, Sciatica of left side Disposition: DC-01 TO HOME OR SELFCARE Is pt being admited?: No Condition: Stable Instructions: Sciatica (ED) Referrals: PRIMARY CARE, [Referring] - 3-5 Days
== END 2019-02-11 17:33 | disposition home or self-care (01) ==
LOC: ED 14:06
DX: M54.42 Lumbago with sciatica, left side (principal); I10 Essential (primary) hypertension; K21.0 Gastro-esophageal reflux disease with esophagitis; M19.90 Unspecified osteoarthritis, unspecified site; E78.00 Pure hypercholesterolemia, unspecified; Z98.890 Other specified postprocedural states; Z90.49 Acquired absence of other specified parts of digestive tract; Z98.51 Tubal ligation status; Z79.82 Long term (current) use of aspirin; Z79.899 Other long term (current) drug therapy; Z88.8 Allergy status to other drugs, medicaments and biological substances
CPT/HCPCS: 96372; 99282; J2270; J2405

== ENCOUNTER 2019-08-08 22:26 | Emergency (ER) | payer MEDICARE, OTHER ==
[2019-08-08 22:39] VITALS: BP 196/89
--- NOTE | 2019-08-09 00:36 | Emergency Department Report ---
Minor Respiratory - HPI Chief Complaint: Upper Respiratory Infection Stated Complaint: EYES HURT,SORE THROAT,SWEAT,COUGH Time Seen by Provider: 08/09/19 00:04 Duration: 2 Days Minor Respiratory: Yes Sore Throat, Yes Able to Tolerate Fluids, Yes Cough, No Rhinorrhea, No Ear Pain, No Sick Contacts, No Hemoptysis, No Chest Pain, No Shortness of Breath, No Fever Other History: 69-year-old -[place] female presents to the emergency room complaining of cough sore throat chills and I hurt 2 days. Patient denies any fevers or nausea no vomiting no abdominal pain. Patient is taking nothing for her symptoms. Patient states that she was not able to follow up with her primary care provider as she had to work today. ED Review of Systems ROS: Stated complaint: EYES HURT,SORE THROAT,SWEAT,COUGH Other details as noted in HPI ED Past Medical Hx - Past Medical History Previous Medical History?: Yes Hx Hypertension: Yes Hx GERD: Yes (Hx) Hx Arthritis: Yes Additional medical history: high cholesterol, fibromyalgia - Surgical History Hx Open Heart Surgery: Yes (valve replacement, CABG) Hx Cholecystectomy: Yes Hx Appendectomy: Yes Additional Surgical History: tubal ligation - Social History Smoking Status: Never Smoker Substance Use Type: None - Medications Home Medications: Home Medications Medication Instructions Recorded Confirmed Last Taken Type Aspirin [Aspirin BABY CHEW TAB] 81 mg PO QDAY 12/04/13 12/27/18 12/27/18 07:24 History 81 mg Losartan [Cozaar] 25 mg PO QDAY 12/04/13 12/27/18 12/27/18 07:24 History 25 mg Metoprolol [Lopressor TAB] 50 mg PO BID 12/04/13 12/27/18 12/27/18 07:25 History 50 mg [place]-3 Acid Ethyl Esters [Lovaza] 2 gm PO BID 12/04/13 12/27/18 12/26/18 History 1 cap Amlodipine Besylate [Norvasc] 5 mg PO DAILY 12/27/18 12/27/18 12/26/18 History 5 mg Flexeril 10 MG TAB 10 mg PO PRN PRN 12/27/18 12/27/18 12/16/18 History 10 mg Ondansetron [Zofran Odt] 4 mg PO Q8HR PRN #14 tab.rapdis 02/11/19 Unknown Rx traMADoL [Ultram] 50 mg PO Q6HR PRN #14 tablet 02/11/19 Unknown Rx Minor Respiratory Exam - Exam General: Vital signs noted. No distress. Alert and acting appropriately. HEENT: Yes Moist Mucous Membranes, No Pharyngeal Erythema, No Pharyngeal Exudates, No Rhinorrhea, No Conjuctival Injection, No Frontal Tenderness, No Maxillary Tenderness Neck: Yes Supple, No Adenopathy Lungs: Yes Good Air Exchange, No Wheezes, No Ronchi, No Stridor, No Cough, No Labored Respirations, No Retractions, No Use of Accessory Muscles, No Other Abnormal Lung Sounds Heart: Yes Regular, Yes Murmur Abdomen: Yes Normal Bowel Sounds, No Tenderness, No Peritoneal Signs Skin: No Rash, No Edema Neurologic: Alert and oriented, no deficits. Musculoskeletal: Unremarkable. ED Course Vital Signs 08/08/19 08/08/19 22:30 22:37 Temperature 97.9 F 97.7 F Pulse Rate 75 75 Respiratory 18 18 Rate Blood Pressure 196/89 196/89 O2 Sat by Pulse 98 98 Oximetry ED Medical Decision Making - Medical Decision Making 69-year-old -[place] female presents to the emergency room complaining of cough sore throat chills and I hurt 2 days. Patient denies any fevers or nausea no vomiting no abdominal pain. Patient is taking nothing for her symptoms. Patient states that she was not able to follow up with her primary care provider as she had to work today. Patient is afebrile normal vital signs chest exam was clear to auscultation throat is moist no swelling no exudate or redness of her throat. Discussed the patient she can take [id number] Mucinex ibuprofen or Tylenol for her sore throat and to follow-up with her primary care provider. Critical care attestation.: If time is entered above; I have spent that time in minutes in the direct care of this critically ill patient, excluding procedure time. ED Disposition Clinical Impression: Viral syndrome Disposition: -01 TO HOME OR SELFCARE Is pt being admited?: No Does the pt Need Aspirin: No Condition: Stable Instructions: Viral Syndrome (ED) Additional Instructions: I recommend [id number] Mucinex and ibuprofen or Tylenol for pain. Increase her fluid intake follow-up which her primary care provider if his symptoms persist or gets worse. Referrals: PRIMARY CARE, [Primary Care Provider] - 3-5 Days
== END 2019-08-09 00:45 | disposition home or self-care (01) ==
LOC: ED 22:26
DX: B34.9 Viral infection, unspecified (principal); I10 Essential (primary) hypertension; K21.9 Gastro-esophageal reflux disease without esophagitis; M19.90 Unspecified osteoarthritis, unspecified site; Z90.49 Acquired absence of other specified parts of digestive tract; Z98.51 Tubal ligation status; Z79.899 Other long term (current) drug therapy; Z88.8 Allergy status to other drugs, medicaments and biological substances

== ENCOUNTER 2021-05-20 07:42 | Emergency (ER) | payer OTHER, MEDICARE ==
[2021-05-20 07:56] VITALS: BP 132/77
--- NOTE | 2021-05-20 08:12 | Emergency Department Report ---
ED Extremity Problem HPI - General Chief complaint: Extremity Problem,Nontraumatic Stated complaint: GOUT Time Seen by Provider: 05/20/21 07:54 Source: patient Mode of arrival: Wheelchair Limitations: No Limitations - History of Present Illness Initial comments: The patient was evaluated in the emergency department for symptoms described in the history of present illness. He/she was evaluated in the context of the global COVID-19 pandemic, which necessitated consideration that the patient might be at risk for infection with the virus that causes COVID-19. Institutional protocols and algorithms that pertain to the evaluation of patients at risk for COVID-19 are in a state of rapid change based on information released by regulatory bodies including the CDC and federal and state organizations. These policies and algorithms were followed during the patient's care in the emergency department. Please note that these policies, procedures and recommendations changed on a rapid basis. 70-year-old -[place] female with a history of hypertension diabetes gout heart disease and fibromyalgia presents to the emergency room for left great toe and foot swelling times a couple days. Patient states she has been taken Tylenol without much relief. Denies any injury. Started 2 days ago has a history of it. MD Complaint: joint swelling, joint paint Onset/Timin -: days(s) Location: left, toe History of Same: Yes -: Yes arthralgia Severity scale (0 -10): 9 Quality: burning, stabbing, aching, sharp Consistency: constant Improves with: nothing Worsens with: weight bearing, walking, palpation Associated Symptoms: denies other symptoms - Related Data Home Medications Medication Instructions Recorded Confirmed Last Taken Aspirin [Aspirin BABY CHEW TAB] 81 mg PO QDAY 12/04/13 12/27/18 12/27/18 07:24 81 mg Losartan [Cozaar] 25 mg PO QDAY 12/04/13 12/27/18 12/27/18 07:24 25 mg Metoprolol [Lopressor TAB] 50 mg PO BID 12/04/13 12/27/18 12/27/18 07:25 50 mg [place]-3 Acid Ethyl Esters [Lovaza] 2 gm PO BID 12/04/13 12/27/18 12/26/18 1 cap Amlodipine Besylate [Norvasc] 5 mg PO DAILY 12/27/18 12/27/18 12/26/18 5 mg Flexeril 10 MG TAB 10 mg PO PRN PRN 12/27/18 12/27/18 12/16/18 10 mg Previous Rx's Medication Instructions Recorded Last Taken Type Ondansetron [Zofran Odt] 4 mg PO Q8HR PRN #14 tab.rapdis 02/11/19 Unknown Rx traMADoL [Ultram] 50 mg PO Q6HR PRN #14 tablet 02/11/19 Unknown Rx Indomethacin 50 mg PO Q8H #12 capsule 05/20/21 Unknown Rx Oxycodone HCl/Acetaminophen 1 each PO Q6HR PRN #12 tablet 05/20/21 Unknown Rx [Percocet 7.5/325 mg] predniSONE [Deltasone] 20 mg PO QDAY #5 tab 05/20/21 Unknown Rx Allergies Allergy/AdvReac Type Severity Reaction Status Date / Time atorvastatin [From Lipitor] Allergy Rash Verified 05/20/21 07:50 ED Review of Systems ROS: Stated complaint: GOUT Other details as noted in HPI Comment: All other systems reviewed and negative ED Past Medical Hx - Past Medical History Hx Hypertension: Yes Hx GERD: Yes (Hx) Hx Arthritis: Yes Additional medical history: high cholesterol, fibromyalgia - Surgical History Hx Open Heart Surgery: Yes (valve replacement, CABG) Hx Cholecystectomy: Yes Hx Appendectomy: Yes Additional Surgical History: tubal ligation - Social History Smoking Status: Never Smoker Substance Use Type: None - Medications Home Medications: Home Medications Medication Instructions Recorded Confirmed Last Taken Type Aspirin [Aspirin BABY CHEW TAB] 81 mg PO QDAY 12/04/13 12/27/18 12/27/18 07:24 History 81 mg Losartan [Cozaar] 25 mg PO QDAY 12/04/13 12/27/18 12/27/18 07:24 History 25 mg Metoprolol [Lopressor TAB] 50 mg PO BID 12/04/13 12/27/18 12/27/18 07:25 History 50 mg [place]-3 Acid Ethyl Esters [Lovaza] 2 gm PO BID 12/04/13 12/27/18 12/26/18 History 1 cap Amlodipine Besylate [Norvasc] 5 mg PO DAILY 12/27/18 12/27/18 12/26/18 History 5 mg Flexeril 10 MG TAB 10 mg PO PRN PRN 06/05/19 06/05/19 05/25/19 History 10 mg Ondansetron [Zofran Odt] 4 mg PO Q8HR PRN #14 tab.rapdis 02/11/19 Unknown Rx traMADoL [Ultram] 50 mg PO Q6HR PRN #14 tablet 02/11/19 Unknown Rx Indomethacin 50 mg PO Q8H #12 capsule 05/20/21 Unknown Rx Oxycodone HCl/Acetaminophen 1 each PO Q6HR PRN #12 tablet 05/20/21 Unknown Rx [Percocet 7.5/325 mg] predniSONE [Deltasone] 20 mg PO QDAY #5 tab 05/20/21 Unknown Rx ED Physical Exam - General Limitations: No Limitations General appearance: alert, in no apparent distress - Head Head exam: Present: atraumatic, normocephalic - Eye Eye exam: Present: normal appearance - ENT ENT exam: Present: mucous membranes moist - Neck Neck exam: Present: normal inspection - Respiratory Respiratory exam: Present: normal lung sounds bilaterally. Absent: respiratory distress - Cardiovascular Cardiovascular Exam: Present: regular rate, normal rhythm. Absent: systolic murmur, diastolic murmur, rubs, gallop - GI/Abdominal GI/Abdominal exam: Present: soft, normal bowel sounds - Extremities Exam Extremities exam: Present: normal inspection - Expanded Lower Extremity Exam Left Knee exam: Present: normal inspection Lower Leg exam: Present: normal inspection Ankle exam: Present: normal inspection Foot/Toe exam: Present: tenderness, swelling, erythema Neuro vascular tendon exam: Present: no vascular compromise - Back Exam Back exam: Present: normal inspection - Neurological Exam Neurological exam: Present: alert, oriented X3 - Psychiatric Psychiatric exam: Present: normal affect, normal mood - Skin Skin exam: Present: warm, dry, intact, normal color. Absent: rash ED Medical Decision Making - Medical Decision Making 70-year-old -[place] female with a history of hypertension diabetes gout heart disease and fibromyalgia presents to the emergency room for left great toe and foot swelling times a couple days. Patient states she has been taken Tylenol without much relief. Denies any injury. Started 2 days ago has a history of it. Percocet, prednisone Toradol injection. Discharged home on Percocet prednisone indomethacin. Instructed to increase her fluid intake. Inform patient that her blood sugars may be elevated while taking prednisone and that she needs to adjust her medication accordingly. Patient informed not to drive while taking Percocet. Patient verbalized understanding. Critical care attestation.: If time is entered above; I have spent that time in minutes in the direct care of this critically ill patient, excluding procedure time. ED Disposition Clinical Impression: Gout attack Disposition: HOME / SELF CARE / HOMELESS Is pt being admited?: No Does the pt Need Aspirin: No Condition: Stable Instructions: Low-Purine Eating Plan Additional Instructions: Take medication as prescribed. Please do not operate heavy machinery while taking Percocet. Be sure to increase your fluid intake. Be aware that your blood sugars may elevate while being on prednisone and you need to adjust your medications accordingly. Please refrain from eating seafood red meats wine cheese and beer. Prescriptions: predniSONE [Deltasone] 20 mg PO QDAY #5 tab Indomethacin 50 mg PO Q8H #12 capsule Oxycodone HCl/Acetaminophen [Percocet 7.5/325 mg] 1 each PO Q6HR PRN #12 tablet PRN Reason: Pain Referrals: Your, primary care provider [Other] - 3-5 Days Forms: Work/School Release Form(ED) Time of Disposition: 08:35
[2021-05-20] MEDS ORDERED: dexAMETHasone 20 MG/5 ML VIAL IM ONE (08:18)
[2021-05-20] MEDS ORDERED: oxyCODONE /ACETAMINOPHEN 5-325MG TAB PO ONE (08:18)
[2021-05-20] MEDS ORDERED: KETOROLAC 30 MG/1 ML INJ IM ONE (08:18)
== END 2021-05-20 09:13 | disposition home or self-care (01) ==
LOC: ED 07:42
DX: M10.9 Gout, unspecified (principal); I10 Essential (primary) hypertension; K21.9 Gastro-esophageal reflux disease without esophagitis; M19.90 Unspecified osteoarthritis, unspecified site; Z90.49 Acquired absence of other specified parts of digestive tract; Z98.51 Tubal ligation status; Z88.8 Allergy status to other drugs, medicaments and biological substances; Z79.899 Other long term (current) drug therapy; Z79.82 Long term (current) use of aspirin
CPT/HCPCS: 96372; 99282; J1100; J1885